=== PATIENT | female | born 1970 | race Caucasian/White ===

== ENCOUNTER 2020-01-19 09:06 | Emergency (ER) | payer OTHER, BC, SELFPAY ==
[2020-01-19 09:14] VITALS: BP 149/67; PULSE 91; RESP 16; TEMP 37; O2SAT 99
--- NOTE | 2020-01-19 09:32 | ED.URI ---
HPI - URI/Sore Throat General Chief Complaint: Upper Respiratory Infection Stated Complaint: cough/sore throat/congestion/fever Source: patient and RN notes reviewed Mode of arrival: ambulatory Limitations: no limitations History of Present Illness HPI Narrative: The patient a non-smoker/nondrinker hospital employee, presents with scratchy throat and cough. Patient states she is a 2-day history of unmeasured fever/chills, associated with cough, and scratchy sore throat. This was preceded by nasal congestion; no precordial chest pain, wheeze, calf pain/edema, sputum changes. Symptoms are mild worse upon awakening in the morning Related Data Allergies Allergy/AdvReac Type Severity Reaction Status Date / Time Penicillins Allergy Mild RASH Verified 01/19/20 09:11 naproxen [From Aleve] Allergy Rash Verified 01/19/20 09:13 Review of Systems Review of Systems: Narrative: The patient has been informed that they may have pre-hypertension or Hypertension based on a BP reading in the department. I recommend that the patient call the primary care provider listed on their discharge instructions or a physician of their choice this week to arrange follow up for further evaluation of possible pre-hypertension or Hypertension General/Constitutional: No weight loss,fever Eyes: N0: Redness,discharge Ears/Nose/Throat: No: Epistaxis,ear discharge Respiratory: Denies: Hemoptysis Gastrointestinal: No Vomiting, Bleeding-rectal Skin: No Lumps, eruption Neurologic: No Focal Weakness,Sz Hematologic: Denies: Petechiae/Purpura Psychiatric: No: Suicida ideationl All Other Systems: Reviewed and Negative PMFSH Family History Family History (Updated 01/18/18 @ 16:12 by DOCTOR UNKNOWN) Grandparent Carcinoma of colon Mother Family history of lung cancer Family history of malignant neoplasm of thyroid Sibling Family history of cardiovascular disease Family history of lung cancer Other Family history of heart disease in male family member before age 55 Social History Social History Smoking status: Never smoker Second hand tobacco smoke exposure: No Alcohol intake: current Comments At time of signature, agree with nursing past medical, surgical, social and family history. There is no relevant family history pertinent to the presenting complaint Exam Narrative: Exam Narrative: General Appearance: Well appearing, Well nourished EYE: PERRLA, Conjunctiva clear Ears: Auditory canal normal, TM normal Nose: Rhinorrhea, Mucousal erythema Mouth/Throat: MM moist, Uvula midline, Pharyngeal erythema (with rare wheeze] Neck: Supple, No adenopathy Respiratory: No respiratory distress, Breath sounds equal, Clear to auscultation Cardiovascular: RRR, No JVD Musculoskeletal: Non tender, Normal strength Skin: Warm, Dry Neurological: A&O x3, CN II-XII intact Psychiatric: Normal mood, Normal affect Course Vital Signs Vital signs: Vital Signs Temperature 98.6 F 01/19/20 09:14 Pulse Rate 91 01/19/20 09:14 Respiratory Rate 16 01/19/20 09:14 Blood Pressure 149/67 H 01/19/20 09:14 Pulse Oximetry 99 01/19/20 09:14 Temperature 98.6 F 01/19/20 09:14 Pulse Rate 91 01/19/20 09:14 Respiratory Rate 16 01/19/20 09:14 Blood Pressure 149/67 H 01/19/20 09:14 Pulse Oximetry 99 01/19/20 09:14 MDM - URI/Sore Throat Lab Data Labs: Strep Screen Presumptive Negative *(Reference Range: Negative)* Discharge Plan Discharge Clinical Impression: Influenza-like illness Patient Disposition: Home, Self-Care Condition: Stable Instructions: Antibiotic Form, Upper Respiratory Infection (ED) Prescriptions: New azithromycin 250 mg tablet See Rx Instructions .ROUTE .COMPLEX Qty: 6 RF: 0 benzonatate [Tessalon Perles] 100 mg capsule 100 mg PO TID Qty: 20 RF: 1 codeine-guaifenesin 10-100 mg/5 mL liquid 7.5 ml PO Q6H PRN (Reason: cough) Qty: 11
== END 2020-01-19 09:50 | disposition home or self-care (01) ==
PROVIDERS: Emergency Provider Emergency Medicine; PCP Family Medicine
DX: J02.9 Acute pharyngitis, unspecified (principal); R05 Cough; R50.9 Fever, unspecified
CPT/HCPCS: 87081; 87880; 99213; G0463

== ENCOUNTER 2020-10-14 09:44 | Outpatient (CLI) | payer OTHER, BC, SELFPAY ==
--- NOTE | ~2020-10-14 | MM_ITS ---
EXAMINATION: MM screening usama BI w mahogany HISTORY: Screening mammogram TECHNIQUE: Craniocaudal and mediolateral oblique 3-D tomosynthesis images were obtained and synthetic 2-D images were generated. CAD analysis was submitted and interpreted. COMPARISON: 03/09/2019, 01/10/2018, 01/26/2016 bilateral digital screening mammogram examinations BREAST PARENCHYMAL COMPOSITION: There are scattered areas of fibroglandular density. FINDINGS: There is no evidence of suspicious mass, calcification, or architectural distortion to sugg est malignancy in either breast. There has been no suspicious interval change. IMPRESSION: 1. No mammographic evidence of malignancy. 2. Recommend routine screening mammography in one year. BI-RADS Category 1: Negative Reviewed, dictated and finalized at location B. SERVICE RUNNER
== END 2020-10-14 09:45 | disposition home or self-care (01) ==
LOC: ANHIMG 09:50
PROVIDERS: PCP Family Medicine; Visit Provider Obstetrics & Gynecology
DX: Z12.31 Encounter for screening mammogram for malignant neoplasm of breast (principal)
CPT/HCPCS: 77063; 77067

== ENCOUNTER 2021-01-29 09:24 | Outpatient (CLI) | payer OTHER, BC, SELFPAY ==
[2021-02-01 07:22] LABS: FSH 47.4 mIU/mL (***); LH 46.7 mIU/mL (***); Progesterone 2.3 ng/mL (***)
[2021-02-01 10:35] LABS: Testosterone Total 27 ng/dL (2-45)
[2021-02-08 16:52] LABS: Estrogen 308.6 pg/mL
== END 2021-01-29 09:25 | disposition home or self-care (01) ==
LOC: ANHLAB 09:28
PROVIDERS: PCP Family Medicine; Visit Provider Obstetrics & Gynecology
DX: N95.1 Menopausal and female climacteric states (principal)
CPT/HCPCS: 36415; 82672; 83001; 83002; 84144; 84403

== ENCOUNTER 2021-09-26 11:52 | Emergency (ER) | payer OTHER, BC, SELFPAY ==
--- NOTE | 2021-09-26 12:00 | ED.EYEPROB ---
HPI - Eye Problem General Chief complaint: Eye Problems Stated complaint: scratched left eye Time Seen by Provider: 09/26/21 12:01 Source: patient, RN notes reviewed and old records reviewed Mode of arrival: ambulatory Limitations: no limitations History of Present Illness HPI Narrative: 50-year-old female presents to the [facility] with complaint of left eye pain. Patient states that she thinks she scratched her eye when she was taking her contacts out last night. Has had a little pain last night. Went to bed woke up this morning and had some pain, eye swelling stop watering. Had taken acetaminophen. Last Tdap was September 2008 per patient's medical record Related Data Allergies Allergy/AdvReac Type Severity Reaction Status Date / Time Penicillins Allergy Mild RASH Verified 09/26/21 12:10 naproxen [From Aleve] Allergy Rash Verified 09/26/21 12:10 Review of Systems Review of Systems: All systems reviewed & are unremarkable except as noted in HPI and below Constitutional: Constitutional: Reports no additional constitutional complaints Eyes: Eyes: Reports as per HPI, Denies change in vision and Denies photophobia Comments: Left eye pain ENT: Reports system reviewed and no additional complaints, except as documented Cardiovascular: Cardiovascular: Reports no additional cardiovascular complaints Respiratory: Respiratory: Reports no additional respiratory complaints Gastrointestinal: Gastrointestinal: Reports no additional gastrointestinal complaints Genitourinary: Genitourinary: Reports no additional female genitourinary complaints Musculoskeletal: Musculoskeletal: Reports no additional musculoskeletal complaints Integumentary/Breasts: Skin/Breast: Reports system reviewed and no additional complaints, except as docu Neurologic: Reports system reviewed and no additional complaints, except as documented Psychiatric: Psychiatric: Reports no additional psychiatric complaints Allergic/Immunologic: Allergic/Immunologic: Reports no additional allergic/immunologic complaints [facility] Past Medical History Medical History Abnormal Pap smear of cervix 09/30/20, ASCUS, HPV neg Anemia Anxiety Depression Herniated disc Rectocele Vaginal delivery x 3 Surgical History Surgical History History of back surgery History of repair of anterior cruciate ligament of right knee History of repair of rectocele History of tubal ligation Family History Family History Grandparent Carcinoma of colon Mother Family history of lung cancer Family history of malignant neoplasm of thyroid Sibling Family history of cardiovascular disease Family history of lung cancer Other Family history of heart disease in male family member before age 55 Social History Social History Smoking status: Never smoker Second hand tobacco smoke exposure: No Alcohol intake: current Substance use: unknown Comments At the time of my signature, I reviewed and agree with the nursing past medical, surgical, social, and family history. There is no relevant family history pertinent to the patient complaint. Exam Const: General: no acute distress Orientation/consciousness: patient oriented x3 HENMT: Head: normal to inspection Ears: external ears normal, TM's normal bilaterally and EAC's normal Eyes: General: appearance normal, both eyes and all related structures Visual Jamil: normal visual jamil by confrontation Alignment and Position: alignment normal Periorbital: periorbital findings normal Eyelids: eyelids normal Conjunctivae: conjunctivae normal Cornea: corneas abnormal and fluorescein used Pupils: Equal, round and reactive pupils present, Pupils normal by confrontation and Pupil accommodation reflex normal EOM: EOMs intact bilaterally Direc
[2021-09-26 12:03] VITALS: BP 132/76; PULSE 92; RESP 18; TEMP 36.9; O2SAT 100
[2021-09-26] MEDS: TETANUS,DIPHTHERIA,AC PERTUSSIS ADULT (0.5 ML) BOOSTRIX IM (12:16)
== END 2021-09-26 12:27 | disposition home or self-care (01) ==
PROVIDERS: Emergency Provider Nurse Practitioner; PCP Family Medicine
DX: S05.02XA Injury of conjunctiva and corneal abrasion without foreign body, left eye, initial encounter (principal); X58.XXXA Exposure to other specified factors, initial encounter; Z23 Encounter for immunization; D64.9 Anemia, unspecified
CPT/HCPCS: 90471; 90715; 99213; A9270; G0463

== ENCOUNTER 2021-11-25 10:05 | Emergency (ER) | payer OTHER, BC, SELFPAY ==
[2021-11-25 10:39] VITALS: BP 141/84; PULSE 88; RESP 18; TEMP 36.8; O2SAT 98
--- NOTE | 2021-11-25 11:21 | ED.URI ---
HPI - URI/Sore Throat General Chief Complaint: Upper Respiratory Infection Stated Complaint: bodyaches,congestion,sorethroat,cough Source: patient Mode of arrival: ambulatory Limitations: no limitations History of Present Illness HPI Narrative: 50-year-old female presents to [facility] with complaints of fever, cough, sore throat, bodyaches nasal congestion since yesterday. Patient reports that her symptoms again worsened tonight. Patient has been taking eque-lyn-zixvgun cold medications with minimal relief. Patient reports that her 2 sons were recently diagnosed with influenza A. Patient denies shortness breath, wheezing, nausea, vomiting or diarrhea MD elicited complaint: fever, cough, sore throat, rhinorrhea and nasal congestion Onset (ago): day(s) (1) Able to tolerate fluids by mouth: Yes Context: sick contacts Associated symptoms: fever and chills Related Data Home Medications Medication Instructions Recorded Confirmed drospirenone (contraceptive) 4 mg DAILY 11/25/21 11/25/21 [Slynd] Allergies Allergy/AdvReac Type Severity Reaction Status Date / Time Penicillins Allergy Mild RASH Verified 11/25/21 11:05 naproxen [From Aleve] Allergy Rash Verified 11/25/21 11:05 Review of Systems Constitutional: Constitutional: Reports chills and Reports fever(s) ENT: Denies dizziness, Reports nasal congestion and Reports sore throat Cardiovascular: Cardiovascular: Denies chest pain Respiratory: Respiratory: Reports cough, Denies dyspnea and Denies wheezing Gastrointestinal: Gastrointestinal: Denies abdominal pain, Denies diarrhea, Denies nausea and Denies vomiting Integumentary/Breasts: Skin/Breast: Denies rash PMFSH Past Medical History Medical History Abnormal Pap smear of cervix 09/30/20, ASCUS, HPV neg Anemia Anxiety Depression Herniated disc Rectocele Vaginal delivery x 3 Surgical History Surgical History History of back surgery History of repair of anterior cruciate ligament of right knee History of repair of rectocele History of tubal ligation Family History Family History Grandparent Carcinoma of colon Mother Family history of lung cancer Family history of malignant neoplasm of thyroid Sibling Family history of cardiovascular disease Family history of lung cancer Other Family history of heart disease in male family member before age 55 Social History Social History Second hand tobacco smoke exposure: No Alcohol intake: current Substance use: unknown Comments At time of signature, I agree with nursing past medical, surgical, social and family history. There is no relevant family history pertinent to the presenting complaint. Exam Const: General: no acute distress Nutritional Appearance: well nourished Orientation/consciousness: patient oriented x3 HENMT: Ears: external ears normal and TM's normal bilaterally Mouth: Yes lip normal and Yes dry mucous membranes Throat: posterior oropharynx normal and uvula midline Other: Mild nasal congestion noted Neck: Neck: normal visual inspection Resp: Effort & Inspection: normal respiratory effort Auscultation: clear to auscultation bilaterally Cardio: Rate: regular rate Rhythm: regular rhythm Skin: General skin exam: normal color Rashes: no rashes Neuro: General: patient oriented x3 Psych: Appearance: grossly normal Affect: normal affect Attitude: cooperative Thought content: Yes Normal thought content present Course Vital Signs Vital signs: Vital Signs Temperature 36.8 C 11/25/21 10:39 Pulse Rate 88 11/25/21 10:39 Respiratory Rate 18 11/25/21 10:39 Blood Pressure 141/84 H 11/25/21 10:39 Pulse Oximetry 98 11/25/21 10:39 Temperature 36.8 C 11/25/21 10:39 Pulse Rate 88 1
[2021-11-26 12:27] LABS: SARS-CoV-2 RNA PCR Positive
== END 2021-11-25 11:31 | disposition home or self-care (01) ==
PROVIDERS: Emergency Provider Nurse Practitioner Family; PCP Family Medicine
DX: B34.9 Viral infection, unspecified (principal); Z20.822 Contact with and (suspected) exposure to COVID-19; D64.9 Anemia, unspecified
CPT/HCPCS: 87804; 99213; C9803; G0463; U0003; U0005

== ENCOUNTER 2022-04-10 12:27 | Emergency (ER) | payer OTHER, BC, SELFPAY ==
[2022-04-10 12:34] VITALS: BP 136/87; PULSE 108; RESP 18; TEMP 36.5; O2SAT 99
--- NOTE | 2022-04-10 12:49 | ED.GENADULT ---
HPI - General Adult General Chief complaint: Skin/Abscess/Foreign Body Stated complaint: rash Source: patient Mode of arrival: ambulatory Limitations: no limitations History of Present Illness HPI narrative: Patient is a 51-year-old female who presents to the [facility] via POV for evaluation of a generalized rash that has been present for approximately 6 days. She believes the rash is caused from working outside and audi poison bernie after carrying brush. Rash is erythematous, vesicular, and pruritic. Shayy and Benadryl improve pruritus. She admits to scratching areas of rash. Related Data Home Medications Medication Instructions Recorded Confirmed drospirenone (contraceptive) 4 mg PO DAILY 04/10/22 04/10/22 [Slynd] Allergies Allergy/AdvReac Type Severity Reaction Status Date / Time Penicillins Allergy Mild RASH Verified 04/10/22 12:39 naproxen [From Aleve] Allergy Rash Verified 04/10/22 12:39 Review of Systems Review of Systems: Denies injury. Pertinent negatives fever, chills, sweats, malaise, poor p.o. intake, change in appetite, headache, LOC, voice changes, drooling, difficulty swallowing, warmth, swelling, dizziness, streaking, drainage, numbness, tingling, loss of sensation, foreign body sensation, deformity, sob, chest pain, and heart palpitations/murmurs. [facility] Past Medical History Medical History Abnormal Pap smear of cervix 09/30/20, ASCUS, HPV neg Anemia Anxiety Depression Herniated disc Rectocele Vaginal delivery x 3 Surgical History Surgical History History of back surgery History of repair of anterior cruciate ligament of right knee History of repair of rectocele History of tubal ligation Family History Family History Grandparent Carcinoma of colon Mother Family history of lung cancer Family history of malignant neoplasm of thyroid Sibling Family history of cardiovascular disease Family history of lung cancer Other Family history of heart disease in male family member before age 55 Social History Social History Smoking status: Never smoker Second hand tobacco smoke exposure: No Alcohol intake: current Substance use: unknown Comments I have reviewed and agree with the patient's past medical, surgical, social, and family hx as documented by the RN. There is no relevant family history pertinent to the presenting complaint. Exam Narrative: GENERAL: Well-appearing, well-nourished, and in no acute distress. HEAD: Normocephalic, atraumatic. No facial swelling appreciated. EYES: PERRLA and EOMI. No evidence of erythema, swelling, or drainage. ENT: Nares clear, no rhinorrhea or epistaxis.Mucous membranes moist and pink. Uvula is midline without erythema and swelling. No evidence of obstruction, petechial rash, cobblestoning, lesions, ulcers, erythema, swelling, exudates, peritonsillar abscess, tenting, or drooling. Breath odor and voice normal. NECK: Supple. No Lymphadenopathy or nuchal rigidity appreciated. CHEST: Bilateral lung jamil are clear to auscultation. No respiratory distress. No evidence of cough or pleuritic cp upon examination. HEART: Tachycardia with a rate of 108. Regular rhythm. No murmur, gallop, or rub heard. EXTREMITIES: Normal range of motion. No edema. SKIN: Warm, dry. Mild rash consistent with poison bernie. Rash is diffuse. No evidence of cellulitis, abscess, streaking, induration, abrasions/lacerations, drainage, or bleeding. NEURO: No focal deficits. Alert and oriented x3. SPECIAL OBSERVATIONS: Smiling. Laughing. No evidence of discomfort. Course Course Level of Care: Express Care Visit Vital Signs Vital signs: Vital Signs Temperature 97.7 F 04/10/22 12:34 Pulse Rate 108 H 04/10/22 12:
== END 2022-04-10 13:12 | disposition home or self-care (01) ==
PROVIDERS: Emergency Provider Nurse Practitioner Family; PCP Family Medicine
DX: L23.7 Allergic contact dermatitis due to plants, except food (principal)
CPT/HCPCS: 99213; G0463

== ENCOUNTER 2022-04-19 14:50 | Outpatient (CLI) | payer OTHER, BC, SELFPAY ==
--- NOTE | ~2022-04-19 | MM_ITS ---
EXAMINATION: MM screening usama BI w mahogany HISTORY: Screening mammogram TECHNIQUE: Craniocaudal and mediolateral oblique 3-D tomosynthesis images were obtained and synthetic 2-D images were generated. CAD analysis was submitted and interpreted. COMPARISON: 10/14/2020,, to bilateral screening mammogram examinations BREAST PARENCHYMAL COMPOSITION: There are scattered areas of fibroglandular density. FINDINGS: There is no evidence of suspicious mass, calcification, or architectural distortion to sugg est malignancy in either breast. There has been no suspicious interval change. IMPRESSION: 1. No mammographic evidence of malignancy. 2. Recommend routine screening mammography in one year. BI-RADS Category 1: Negative Reviewed, dictated and finalized at location A.
== END 2022-04-19 14:51 | disposition home or self-care (01) ==
LOC: ANHIMG 14:51
PROVIDERS: PCP Family Medicine; Visit Provider Obstetrics & Gynecology
DX: Z12.31 Encounter for screening mammogram for malignant neoplasm of breast (principal)
CPT/HCPCS: 77063; 77067

== ENCOUNTER 2022-07-15 07:02 | Outpatient (CLI) | payer OTHER, BC, SELFPAY ==
[2022-07-15 07:27] LABS: Basophils Absolute Auto 0.1 K/mm3 (0.0-0.1); Basophils Percent Auto 0.8 % (0.2-1.2); Eosinophils Absolute Auto 0.1 K/mm3 (0-0.3); Eosinophils Percent Auto 1.1 % (0-4.4); Hematocrit 41.4 % (37.0-47.0); Hemoglobin 13.7 g/dL (12.0-15.0); Immature Granulocyte Absolute 0.02 K/mm3 (0.00-0.031); Immature Granulocyte Percent A 0.3 % (0-0.5); Lymphocytes Absolute Auto 1.57 K/mm3 (0.9-3.2); Lymphocytes Percent Auto 24.7 % (18.3-44.2); Mean Corpuscular HGB Conc 33.1 g/dl (32-36); Mean Corpuscular Volume 90.8 fl (80-100); Mean Platelet Volume 9.9 fl (7.4-10.4); Monocytes Absolute Auto 0.5 K/mm3 (0.1-0.6); Monocytes Percent Auto 7.1 % (2.6-8.5); Neutrophils Absolute Auto 4.2 K/mm3 (1.3-6.7); Platelet Count Result 338 k/mm3 (150-375); Red Blood Count 4.56 M/mm3 (4.2-5.4); Red Cell Distribution Width 13.5 % (11.5-14.5); White Blood Count 6.4 K/mm3 (4.5-10.0)
[2022-07-15 07:37] LABS: Alanine Aminotransferase 20 U/L (6-35); Albumin Level 4.6 g/dL (3.5-5.1); Alkaline Phosphatase 124 U/L (38-126); Anion Gap 14 mmol/L (8-16); Aspartate Amino Transferase 22 U/L (14-36); Bilirubin,Total 0.5 mg/dL (0.2-1.3); Blood Urea Nitrogen 13 mg/dL (7-17); Calcium 9.2 mg/dL (8.4-10.2); Carbon Dioxide 19 mmol/L (22-30); Chloride 107 mmol/L (98-107); Cholesterol 174 mg/dL (0-200); Estimated Glomerular Filt Rate 47; Glucose 106 mg/dL (65-110); HDL Direct 52 mg/dL; Potassium 4.1 mmol/L (3.4-5.0); Sodium 140 mmol/L (137-145); Triglycerides 110 mg/dL (<150)
[2022-07-15 07:48] LABS: LDL Cholesterol Direct 78 mg/dL
== END 2022-07-15 07:03 | disposition home or self-care (01) ==
PROVIDERS: PCP Family Medicine; Visit Provider Physician Assistant
DX: E66.9 Obesity, unspecified (principal); F32.9 Major depressive disorder, single episode, unspecified; Z79.899 Other long term (current) drug therapy
CPT/HCPCS: 36415; 80053; 80061; 84443; 85025

== ENCOUNTER 2022-09-30 06:57 | Outpatient (CLI) | payer OTHER, BC, SELFPAY ==
[2022-09-30 07:33] LABS: Anion Gap 13 mmol/L (8-16); Blood Urea Nitrogen 16 mg/dL (7-17); Carbon Dioxide 23 mmol/L (22-30); Chloride 106 mmol/L (98-107); Estimated Glomerular Filt Rate 47; Glucose 92 mg/dL (65-110); Potassium 4.2 mmol/L (3.4-5.0); Sodium 142 mmol/L (137-145)
== END 2022-09-30 06:58 | disposition home or self-care (01) ==
LOC: ANHLAB 07:00
PROVIDERS: PCP Family Medicine; Visit Provider Physician Assistant
DX: N28.9 Disorder of kidney and ureter, unspecified (principal)
CPT/HCPCS: 36415; 80048

== ENCOUNTER 2023-02-04 07:04 | Outpatient (CLI) | payer OTHER, BC, SELFPAY ==
[2023-02-04 07:35] LABS: Anion Gap 4 mmol/L (8-16); Blood Urea Nitrogen 15 mg/dL (7-17); Calcium 8.7 mg/dL (8.4-10.2); Carbon Dioxide 27 mmol/L (22-30); Chloride 109 mmol/L (98-107); Estimated Glomerular Filt Rate 58; Glucose 87 mg/dL (65-110); Potassium 4.2 mmol/L (3.4-5.0); Sodium 140 mmol/L (137-145)
[2023-02-10 04:48] LABS: FSH 79.8 mIU/mL (***)
== END 2023-02-04 07:05 | disposition home or self-care (01) ==
PROVIDERS: PCP Family Medicine; Referring Provider Obstetrics & Gynecology; Visit Provider Family Medicine
DX: N95.1 Menopausal and female climacteric states (principal); N18.9 Chronic kidney disease, unspecified
CPT/HCPCS: 36415; 80048; 83001

== ENCOUNTER 2024-01-12 08:19 | Emergency (ER) | payer OTHER, BC, SELFPAY ==
[2024-01-12 08:33] VITALS: BP 144/83; PULSE 94; RESP 18; TEMP 37; O2SAT 99
--- NOTE | 2024-01-12 09:15 | ED.URI ---
HPI - URI/Sore Throat General Chief Complaint: Upper Respiratory Infection Stated Complaint: cold / flu like symptoms Time Seen by Provider: 01/12/24 09:15 Source: patient, RN notes reviewed and old records reviewed Mode of arrival: ambulatory Limitations: no limitations History of Present Illness HPI Narrative: 53 year old female who presents to express care with complaints of cough cold symptoms, fevers and some body aches with headache pain since yesterday. Patient reports that she has had highest fevers of 100.8F. Patient states that she has been taking Mucinex and some Tylenol for her symptoms. Patient reports no shortness of breath, no nausea,vomiting or any diarrhea. MD elicited complaint: fever, cough, nasal congestion and other (body aches, headaches) Onset (ago): day(s) (day 2 of symptoms) Severity: moderate Able to tolerate fluids by mouth: Yes Treatments prior to arrival: acetaminophen and other (Mucinex) Related Data Allergies Allergy/AdvReac Type Severity Reaction Status Date / Time Penicillins Allergy Mild RASH Verified 07/29/23 14:51 naproxen [From Aleve] Allergy Rash Verified 07/29/23 14:51 Review of Systems Review of Systems: CONSTITUTIONAL: Reports malaise, chills, sweats, or fever. EYES: Denies visual changes, redness, or discharge. ENT: Reports rhinorrhea, congestion, no sinus pain, no otalgia and no acute sore throat. CARDIOVASCULAR: Denies chest pain, palpitations, or edema. RESPIRATORY: Reports cough.? Denies dyspnea. GASTROINTESTINAL: Denies abdominal pain, nausea, vomiting, diarrhea SKIN: Denies rash or itching. MUSCULOSKELETAL: Reports myalgia. NEUROLOGIC: Reports headache. All systems reviewed & are unremarkable except as noted in HPI and below PMFSH Past Medical History Medical History Abnormal Pap smear of cervix 09/30/20, ASCUS, HPV neg Anemia Anxiety Depression Herniated disc Lichen sclerosus Rectocele Vaginal delivery x 3 Surgical History Surgical History History of back surgery History of repair of anterior cruciate ligament of right knee History of repair of rectocele History of tubal ligation Status post Mohs surgery Family History Family History Grandparent Carcinoma of colon Mother Family history of lung cancer Family history of malignant neoplasm of thyroid Sibling Family history of cardiovascular disease Family history of lung cancer Other Family history of heart disease in male family member before age 55 Social History Social History Smoking status: Never smoker Second hand tobacco smoke exposure: No Alcohol intake: current Substance use: unknown Substance use type: does not use Lack of Transportation: No Lack of Food: Never True Current Housing: I Have Housing Concerned About Future Housing: No Difficulty Paying Gas/Electric Bills: No Difficulty Paying for Meds: No Currently Unemployed: No Education: Trade/Vocational Certificate Difficulty w/ Childcare or Family Care: No Comments At time of signature, agree with nursing past medical, surgical, social and family history. There is no relevant family history pertinent to the presenting complaint Exam Narrative: GENERAL: Well-appearing, well-nourished, and in no acute distress. HEAD: Normocephalic EYES: PERRLA, conjunctivae clear ENT: Nares clear, turbinates edematous and erythematous, clear discharge. Mucous membranes moist. TM pearly rea with dull light reflex bilaterally; no tragal tenderness. Oropharynx erythematous without lesions. Tonsils not enlarged and without exudate, no drooling, no hoarseness, no trismus, uvula midline. NECK: Supple. No lymphadenopathy CHEST: Clear to auscultation, breath sounds equal. No wheezing, rho
== END 2024-01-12 09:31 | disposition home or self-care (01) ==
PROVIDERS: Emergency Provider Registered Nurse; PCP Family Medicine
DX: U07.1 COVID-19 (principal); L90.0 Lichen sclerosus et atrophicus
CPT/HCPCS: 87081; 87426; 87804; 87880; 99213; G0463

== ENCOUNTER 2024-01-19 09:46 | Outpatient (CLI) | payer OTHER, BC, SELFPAY ==
--- NOTE | ~2024-01-19 | XR_ITS ---
EXAMINATION: XR chest 2V DATE: 01/19/2024 10:06 INDICATION: Other specified diseases of the upper respiratory tract, post-COVID TECHNIQUE: PA and lateral views of the chest are obtained. COMPARISON: 04/14/2005 FINDINGS: The lungs are free of acute opacities. No pleural effusion or pneumothorax. The cardiomedia stinal silhouette is normal. There is mild thoracic spondylosis. IMPRESSION: 1. No acute cardiopulmonary abnormality. Reviewed, dictated and finalized at location L. TOR SUPERVISOR
== END 2024-01-19 09:47 | disposition home or self-care (01) ==
PROVIDERS: PCP Family Medicine; Visit Provider Family Medicine
DX: J39.8 Other specified diseases of upper respiratory tract (principal)
CPT/HCPCS: 71046

== ENCOUNTER 2024-03-22 15:46 | Outpatient (CLI) | payer OTHER, BC, SELFPAY ==
--- NOTE | ~2024-03-22 | MM_ITS ---
EXAMINATION: MM screening usama BI w mahogany HISTORY: Screening mammogram TECHNIQUE: Craniocaudal and mediolateral oblique 3-D tomosynthesis images were obtained and synthetic 2-D images were generated. CAD analysis was submitted and interpreted. COMPARISON: 04/19/2022, 10/14/2020 bilateral screening mammogram examination BREAST PARENCHYMAL COMPOSITION: The breasts are almost entirely fatty. FINDINGS: There is no evidence of suspicious mass, calcification, or architectural distortion to sugg est malignancy in either breast. There has been no suspicious interval change. IMPRESSION: 1. No mammographic evidence of malignancy. 2. Recommend routine screening mammography in one year. BI-RADS Category 1: Negative Reviewed, dictated and finalized at location A.
== END 2024-03-22 15:47 ==
PROVIDERS: PCP Family Medicine; Visit Provider Obstetrics & Gynecology
DX: Z12.31 Encounter for screening mammogram for malignant neoplasm of breast (principal)
CPT/HCPCS: 77063; 77067

== ENCOUNTER 2025-01-03 09:57 | Outpatient (CLI) | payer OTHER, BC, SELFPAY ==
[2025-01-03 10:20] LABS: Hematocrit 39.9 % (37.0-47.0); Hemoglobin 12.5 g/dL (12.0-15.0); Mean Corpuscular HGB Conc 31.3 g/dl (32-36); Mean Corpuscular Hemoglobin 28.5 pg (26-34); Mean Corpuscular Volume 91.1 fl (80-100); Mean Platelet Volume 9.9 fl (7.4-10.4); Platelet Count Result 289 k/mm3 (150-375); Red Blood Count 4.38 M/mm3 (4.2-5.4); Red Cell Distribution Width 14.1 % (11.5-14.5)
[2025-01-03 10:32] LABS: Alanine Aminotransferase 31 U/L (6-35); Albumin Level 4.4 g/dL (3.5-5.1); Alkaline Phosphatase 120 U/L (38-126); Anion Gap 12 mmol/L (4-12); Aspartate Amino Transferase 29 U/L (14-36); Bilirubin,Total 0.5 mg/dL (0.2-1.3); Blood Urea Nitrogen 18 mg/dL (7-17); Calcium 9.4 mg/dL (8.4-10.2); Carbon Dioxide 26 mmol/L (22-30); Chloride 106 mmol/L (98-107); Cholesterol 181 mg/dL (0-200); Estimated Glomerular Filt Rate > 60; Glucose 95 mg/dL (65-110); HDL Direct 55 mg/dL; Potassium 4.2 mmol/L (3.4-5.0); Sodium 144 mmol/L (137-145); Triglycerides 126 mg/dL (<150)
[2025-01-03 10:37] LABS: Hemoglobin A1C 5.7 % (<5.7)
[2025-01-03 10:42] LABS: LDL Cholesterol Direct 88 mg/dL
== END 2025-01-03 09:58 | disposition home or self-care (01) ==
PROVIDERS: PCP Nurse Practitioner Family; Visit Provider Nurse Practitioner Family
DX: Z13.29 Encounter for screening for other suspected endocrine disorder (principal); Z13.0 Encounter for screening for diseases of the blood and blood-forming organs and certain disorders involving the immune mechanism; Z13.1 Encounter for screening for diabetes mellitus; Z13.220 Encounter for screening for lipoid disorders
CPT/HCPCS: 36415; 80053; 80061; 83036; 84443; 85027

== ENCOUNTER 2025-05-21 11:15 | Outpatient (CLI) | payer OTHER, BC, SELFPAY ==
--- NOTE | ~2025-05-21 | XR_ITS ---
EXAM/ PROCEDURE: XR knee RT 3V - 05/21/2025 11:30 CDT HISTORY: 54 years old Female with M25.561 - Pain in right knee COMPARISON: None available TECHNIQUE: Three view(s) FINDINGS/ IMPRESSION: There are no fractures or dislocations.Joint spaces are within normal limits. Post-surgical changes seen. Reviewed, dictated and finalized at location A.
== END 2025-05-21 11:16 | disposition home or self-care (01) ==
LOC: ANHIMG 11:18
PROVIDERS: PCP Nurse Practitioner Family; Visit Provider Nurse Practitioner Family
DX: M25.561 Pain in right knee (principal); Z98.890 Other specified postprocedural states
CPT/HCPCS: 73562

== ENCOUNTER 2025-06-03 07:51 | Day surgery (SDC) | payer OTHER, BC, SELFPAY ==
[2025-05-09 14:36] VITALS: BMI 37.0
[2025-06-03 08:08] VITALS: BP 137/68; PULSE 95; RESP 18; TEMP 36.3; O2SAT 100; BMI 36.6
[2025-06-03] MEDS: LACTATED RINGERS 1,000 ML 150 ML IV CONT (08:18)
--- NOTE | 2025-06-03 08:38 | WPDANESEPPF ---
Anes - Initial Pre Proc Eval Procedure: Operation Date: 06/03/25 09:30 Proposed Procedures p Screening Colonoscopy - Jeff Vallejo MD Date/Time: 06/03/25 08:38 Surgeon: Jeff Vallejo MD Pre Op Diagnosis: Screening Patient Data Age: 54 Gender: F Height: 1.6 m Weight: 93.8 kg Last Vital Signs Temp 97.3 F L 06/03/25 08:08 Pulse 95 06/03/25 08:08 Resp 18 06/03/25 08:08 BP 137/68 06/03/25 08:08 Pulse Ox 100 06/03/25 08:08 O2 Del Method Room Air 06/03/25 08:08 Allergies Allergy/AdvReac Type Severity Reaction Status Date / Time Penicillins Allergy Mild RASH Verified 06/03/25 08:07 naproxen (From Aleve) Allergy Rash Verified 06/03/25 08:07 Home Medications ?Medication ?Instructions ?Recorded ?Confirmed ?Type ascorbic acid (vitamin C) 125 mg 125 mg PO DAILY 01/03/25 05/09/25 History capsule cholecalciferol (vitamin D3) 10 10 mcg PO DAILY 01/03/25 05/09/25 History mcg (400 unit) capsule zklxqmng-crpjaejl-mwnvl acid 240 1 tablet PO DAILY 01/03/25 05/09/25 History mcg-vit K1 150 mcg-herb 357 tablet (Alive Women's 50 Plus Ultra Multivitamin) shilajit 250 mg capsule 250 mg PO DAILY 01/03/25 05/09/25 History magnesium 200 mg tablet 200 mg PO DAILY 03/15/25 05/09/25 History theanine 100 mg-ashwagandha 1 tablet PO DAILY 03/15/25 05/09/25 History extract 25 mg chewable tablet escitalopram oxalate 10 mg tablet 10 mg PO DAILY #90 tabs 05/02/25 05/09/25 Rx oshwagonda 1 tablet PO DAILY 05/09/25 05/09/25 History Patient hx anesthesia problems: none Family hx anesthesia problems: none Results Review: All pre-operative results and documents have been reviewed as part of the pre-operative evaluation. [facility] Past Medical History Medical History Lichen sclerosus Herniated disc Anemia Anxiety Depression Surgical History Surgical History History of repair of anterior cruciate ligament of right knee History of back surgery History of repair of rectocele History of tubal ligation Family History Family History Grandparent Carcinoma of colon Mother Family history of malignant neoplasm of thyroid Sibling Family history of cardiovascular disease Family history of lung cancer Brain cancer Uterine cancer Other Carcinoma of colon Other Family history of heart disease in male family member before age 55 Social History Social History Social History: 03/12/25 declined SDOH Smoking status: Never smoker Second hand tobacco smoke exposure: No Alcohol intake: current Substance use: unknown Substance use type: does not use Do You Feel Safe in your Home?: Yes Lack of Transportation: No Lack of Food: Never True Current Housing: I Have Housing Concerned About Future Housing: No Difficulty Paying Gas/Electric Bills: No Difficulty Paying for Meds: No Currently Unemployed: No Education: Trade/Vocational Certificate Difficulty w/ Childcare or Family Care: No Living arrangements: with family Spiritual care concerns: No Anes - Eval Final PreProcedure Day of Procedure 06/03/25 08:38 Patient weight: obese Heart: regular rate and rhythm Lungs: clear to auscultation Airway: Mallampati scale class III Neurological: alert and oriented Last oral intake: >/= 8 hours ASA classification: II Emergent: no Anesthetic plan: proceed Anesthesia type and monitoring: general GIVS and standard monitoring Results Review: All pre-operative results and documents have been reviewed as part of the pre-operative evaluation. Informed Consent: The patient's anesthetic plan and its attendant risks and benefits were discussed with the patient/family/POA. Questions were solicited and answers provided to the satisfaction of the patient/family/POA.
--- NOTE | 2025-06-03 09:02 | PM.IMHP ---
H&P: HPI History of Present Illness Date/Time: 06/03/25 09:02 Chief Complaint: Screening colonoscopy Narrative: This is the patient's first colonoscopy. There are no GI symptoms and there is no family history of colorectal cancer. Review of Systems Review of Systems: All systems reviewed & are unremarkable except as noted in HPI and below PMFSH Past Medical History Medical History Lichen sclerosus Herniated disc Anemia Anxiety Depression Surgical History Surgical History History of repair of anterior cruciate ligament of right knee History of back surgery History of repair of rectocele History of tubal ligation Family History Family History Grandparent Carcinoma of colon Mother Family history of malignant neoplasm of thyroid Sibling Family history of cardiovascular disease Family history of lung cancer Brain cancer Uterine cancer Other Carcinoma of colon Other Family history of heart disease in male family member before age 55 Social History Social History Social History: 03/12/25 declined SDOH Smoking status: Never smoker Second hand tobacco smoke exposure: No Alcohol intake: current Substance use: unknown Substance use type: does not use Do You Feel Safe in your Home?: Yes Lack of Transportation: No Lack of Food: Never True Current Housing: I Have Housing Concerned About Future Housing: No Difficulty Paying Gas/Electric Bills: No Difficulty Paying for Meds: No Currently Unemployed: No Education: Trade/Vocational Certificate Difficulty w/ Childcare or Family Care: No Living arrangements: with family Spiritual care concerns: No Meds Home Medications and Allergies Home Medications ?Medication ?Instructions ?Recorded ?Confirmed ?Type ascorbic acid (vitamin C) 125 mg 125 mg PO DAILY 01/03/25 05/09/25 History capsule cholecalciferol (vitamin D3) 10 10 mcg PO DAILY 01/03/25 05/09/25 History mcg (400 unit) capsule gqwslhgc-qutwazlb-rijtf acid 240 1 tablet PO DAILY 01/03/25 05/09/25 History mcg-vit K1 150 mcg-herb 357 tablet (Alive Women's 50 Plus Ultra Multivitamin) shilajit 250 mg capsule 250 mg PO DAILY 01/03/25 05/09/25 History magnesium 200 mg tablet 200 mg PO DAILY 03/15/25 05/09/25 History theanine 100 mg-ashwagandha 1 tablet PO DAILY 03/15/25 05/09/25 History extract 25 mg chewable tablet escitalopram oxalate 10 mg tablet 10 mg PO DAILY #90 tabs 05/02/25 05/09/25 Rx oshwagonda 1 tablet PO DAILY 05/09/25 05/09/25 History Allergies Allergy/AdvReac Type Severity Reaction Status Date / Time Penicillins Allergy Mild RASH Verified 06/03/25 08:07 naproxen (From Aleve) Allergy Rash Verified 06/03/25 08:07 Vital Signs Vital Signs - 24 hr 06/03/25 08:08 Temperature 97.3 F L Pulse Rate 95 Respiratory Rate 18 Blood Pressure 137/68 Pulse Oximetry 100 Oxygen Delivery Room Air Exam Const: General: cooperative and healthy appearing Resp: Effort & Inspection: normal respiratory effort and able to speak in complete sentences Auscultation: clear to auscultation bilaterally Cardio: Rate: regular rate Rhythm: regular rhythm GI: Inspection: normal to inspection GI Palp: No No hepatosplenomegaly present Auscultation: normal bowel sounds Rectal Exam: deferred Skin: General skin exam: normal color Psych: Appearance: grossly normal Mental Status: mental status grossly normal Assessment and Plan Assessment and plan (1) Encounter for screening colonoscopy: Code(s): Z12.11 - Encounter for screening for malignant neoplasm of colon Status: Acute Assessment and Plan: The patient is deemed a good candidate for the procedure. Consent signed. Will proceed.
[2025-06-03 09:27] VITALS: BP 123/75; PULSE 87; RESP 20; O2SAT 100
[2025-06-03 09:37] VITALS: BP 132/73; PULSE 88; RESP 18; O2SAT 100
[2025-06-03 09:47] VITALS: BP 130/80; PULSE 87; RESP 17; O2SAT 100
== END 2025-06-03 09:58 | disposition home or self-care (01) ==
PROVIDERS: PCP Nurse Practitioner Family; Referring Provider Nurse Practitioner Family; Visit Provider Internal Medicine Gastroenterology
PROC: 0DJD8ZZ Inspection of Lower Intestinal Tract, Via Natural or Artificial Opening Endoscopic (ICD-10-PCS; CPT 45378; principal; 2025-06-03 09:30)
DX: Z12.11 Encounter for screening for malignant neoplasm of colon (principal); D64.9 Anemia, unspecified; F41.9 Anxiety disorder, unspecified; F32.A Depression, unspecified; L90.0 Lichen sclerosus et atrophicus; E66.9 Obesity, unspecified; Z68.36 Body mass index [BMI] 36.0-36.9, adult; Z98.890 Other specified postprocedural states; Z98.1 Arthrodesis status; Z98.51 Tubal ligation status; Z80.0 Family history of malignant neoplasm of digestive organs; Z80.8 Family history of malignant neoplasm of other organs or systems; Z80.1 Family history of malignant neoplasm of trachea, bronchus and lung; Z80.49 Family history of malignant neoplasm of other genital organs; Z82.49 Family history of ischemic heart disease and other diseases of the circulatory system
CPT/HCPCS: 45378; J2003; J2704; J7120

== ENCOUNTER 2025-06-27 08:12 | Outpatient (CLI) | payer OTHER, BC, SELFPAY ==
--- NOTE | 2025-07-01 11:10 | P.SLEEP_ITS ---
Sleep Study - Home Unattended Date of Study: 06/27/25 Ordering Provider: Shaila De La Rosa APRN Interpreting Provider: Florecita Delgado MD Home Sleep Study Type: Watch PAT Height: 1.6 m Weight: 93.894 kg Body Mass Index: 36.6 Neck Circumference (inches): 16 [place]: 7 Reason for Sleep Study Loud snoring, witnessed apneas Sleep History Daina Tracy is a 54-year-old woman who underwent a home sleep test using Watch Pat for complaints of loud snoring and witnessed apneas. She does not have hypertension. She has difficulty breathing when she sleeps on her back. She does not have a morning headache but she does awaken with a dry mouth. She does not have nocturnal heartburn. She does not have nocturia. She had a prior sleep study in 2009 but cannot remember her diagnosis. She wakes up feeling fatigue and she is sleepy during the day. Her sleep is not refreshing. She has an urge to fall asleep during the day however does not feel drowsy while driving. She does not have an urge to move her legs at night. She does clench or grind her teeth at night. She does not have muscle weakness with strong emotion, she does not feel paralyzed on waking or falling asleep, she does not have vivid dreamlike scenes upon awakening or falling asleep. She does not dream during daytime naps. Normal bedtime on work days is 9:30 p.m. falling asleep within 15 minutes spending 7 hours in bed but only 4 hours sleeping. On days off her bedtime is 10:00 p.m., falls asleep within 15 minutes spending 8 hours in bed but only 5 hours of sleep. Her sleep is only slightly more restorative on days off. She does not take planned naps. Habits: Tobacco: none Caffeine: more than 5 servings daily Alcohol: Does not drink alcohol weekly Recreational substances: none PMFSH Past Medical History Medical History Lichen sclerosus Herniated disc Anemia Anxiety Depression Surgical History Surgical History History of repair of anterior cruciate ligament of right knee History of back surgery History of repair of rectocele History of tubal ligation Family History Family History Grandparent Carcinoma of colon Mother Family history of malignant neoplasm of thyroid Sibling Family history of cardiovascular disease Family history of lung cancer Brain cancer Uterine cancer Other Carcinoma of colon Other Family history of heart disease in male family member before age 55 Social History Social History Social History: 03/12/25 declined SDVT Smoking status: Never smoker Second hand tobacco smoke exposure: No Alcohol intake: current Substance use: unknown Substance use type: does not use Do You Feel Safe in your Home?: Yes Lack of Transportation: No Lack of Food: Never True Current Housing: I Have Housing Concerned About Future Housing: No Difficulty Paying Gas/Electric Bills: No Difficulty Paying for Meds: No Currently Unemployed: No Education: Trade/Vocational Certificate Difficulty w/ Childcare or Family Care: No Living arrangements: with family Spiritual care concerns: No Medications Home Medications ?Medication ?Instructions ?Recorded ?Confirmed ?Type ascorbic acid (vitamin C) 125 mg 125 mg PO DAILY 01/03/25 05/09/25 History capsule cholecalciferol (vitamin D3) 10 10 mcg PO DAILY 01/03/25 05/09/25 History mcg (400 unit) capsule uionhbvz-tlujlzxf-gqhji acid 240 1 tablet PO DAILY 01/03/25 05/09/25 History mcg-vit K1 150 mcg-herb 357 tablet (Alive Women's 50 Plus Ultra Multivitamin) shilajit 250 mg capsule 250 mg PO DAILY 01/03/25 05/09/25 History magnesium 200 mg tablet 200 mg PO DAILY 03/15/25 05/09/25 History theanine 100 mg-ashwagandha 1 tablet PO DAILY 03/15/25 05/09/25 History extract 25 mg chewable tablet escitalopram oxalate 10 mg tablet 10 mg PO DAILY #90 tabs 05/02/25 05/09/25 Rx oshwagonda 1 tablet PO DAILY 05/09/25 05/09/25 History Sleep Procedure The sleep study was completed using [employer] a technically adequate device with seven channels: peripheral arterial tone, actigraphy, body position, snore, respiratory movement, pulse oximetry, sleep staging, and heart rate. Prior to using the device, the patient received verbal and written instructions for its application and was provided with the help desk phone number for additional telephonic instruction with 24-hour availability of qualified personnel to answer questions. Sleep Architecture The total recording time is 8 hrs, 1 min. The total sleep time is 6 hrs, 42 min. Sleep latency is 9 minutes. REM latency is 54 minutes. The patient had 22 episodes of waking. Sleep architecture shows 20.4% deep sleep, 48.2% light sleep, and showed NREM (Light 48.2%; Deep 20.4%), and 31.5% stage REM. The patient spent 64.4% of total sleep time in the supine position. Sleep efficiency was 84%. Respiratory Analysis The overall AHI (pAHI 3%:) is 22.0. The central AHI is 0.8. The AHI was 13.3 in NREM and 40.6 in REM sleep. The AHI was 30.0 in Supine and 7.0 in Non-supine sleep. Percent of Alfred Salazar respirations is 0%. The apnea-hypopnea index using 4% criteria is 14.1. This is consistent with mild obstructive sleep apnea. She has a medical comorbidity including depression which allows her to receive treatment with mild sleep apnea. Oximetry Data The oxygen desaturation index (DAILY 4%:) is 15.2. The mean saturation is 94%, and the lowest saturation is 78%. Time spent with saturation < 88% is 12.6 minutes. Snoring Profile Snoring average intensity is 45 dB. The patient snored above 45 decibels for 137.2 minutes, 34.1% of sleep time. Cardiac Profile The average pulse rate is 75 beats per minutes. The lowest pulse rate is 58 bpm. The highest pulse rate is 102 bpm. Cardiac rhythm analysis in sleep does not show atrial fibrillation. Assessment and Plan Assessment and Plan (1) Obstructive sleep apnea: Code(s): G47.33 - Obstructive sleep apnea (adult) (pediatric) Status: Acute Assessment and Plan: This home sleep test using WatchPat on 06/27/2025 shows an apnea-hypopnea index of 22 using 3% criteria) which is consistent with moderate obstructive sleep apnea, desaturation to 78% and 12.6 minutes spent below 88%. Patient had moderate to loud snoring. Events were worse during REM with a REM AHI of 40.6. Events were worse in supine sleep with a supine index of 30. The patient is a candidate for auto PAP to treat her moderate obstructive sleep apnea with desaturation. I recommend that this patient be prescribed Resmed AirSense 11 AutoPAP 5-15 cm H2O, CPAP mask/filters/tubing and humidifier chamber. This should be used with all episodes of sleep. Compliance should be reviewed within 31-90 days of starting therapy for usage greater than 4 hours per night greater than 70% of the nights. The patient should be asked about symptoms such as excessive daytime sleepiness, quality of sleep, decreased nocturia, increased mental functioning such as memory, mood, and concentration. If the patient fails to respond to auto PAP, she should have a full night CPAP titration in the sleep lab, no naps on the day of testing and have a sleep aid such as Lunesta 2 mg to use, if needed, to get to sleep and stay asleep for the study. She should be told not to take the sleep aid at home. This should be taken at the sleep lab after arrival if needed. BMI is 36.7. Weight management is advised. Clinical data suggests that weight loss of 10% can reduce the severity of respiratory events and snoring and improve AHI by as much as 25%. Data The data obtained during this sleep study is adequate for interpretation. Certification This sleep study has been reviewed by a board certified sleep medicine physician.
[2025-07-01 11:15] VITALS: BMI 36.6
== END 2025-06-28 10:33 | disposition home or self-care (01) ==
PROVIDERS: PCP Nurse Practitioner Family; Visit Provider Nurse Practitioner Family
DX: G47.33 Obstructive sleep apnea (adult) (pediatric) (principal); G47.10 Hypersomnia, unspecified
CPT/HCPCS: 95800

== ENCOUNTER 2025-06-28 08:16 | Outpatient (CLI) | payer OTHER, BC, SELFPAY ==
--- NOTE | ~2025-06-28 | MM_ITS ---
EXAMINATION: MM screening usama BI w mahogany HISTORY: Screening TECHNIQUE: Craniocaudal and mediolateral oblique 3-D tomosynthesis images were obtained and synthetic 2-D images were generated. CAD analysis was submitted and interpreted. COMPARISON: Comparison to multiple prior studies sequentially, with oldest reviewed study dated . BREAST PARENCHYMAL COMPOSITION: Not Dense: The breasts are almost entirely fatty. FINDINGS: There is no evidence of suspicious mass, calcification, or architectural distortion to sugg est malignancy in either breast. There has been no suspicious interval change. IMPRESSION: 1. No mammographic evidence of malignancy. 2. Recommend routine screening mammography in one year. BI-RADS Category 1: Negative Reviewed, dictated and finalized at location []
== END 2025-06-28 08:17 | disposition home or self-care (01) ==
PROVIDERS: PCP Nurse Practitioner Family; Visit Provider Nurse Practitioner Obstetrics & Gynecology
DX: Z12.31 Encounter for screening mammogram for malignant neoplasm of breast (principal)
CPT/HCPCS: 77063; 77067